=== PATIENT | male | born 1970 | race Caucasian/White ===

== ENCOUNTER 2023-11-14 14:14 | Emergency (ER) | payer OTHER, SELFPAY ==
[2023-11-14 14:16] VITALS: BP 118/75
--- NOTE | 2023-11-14 14:22 | ED.GENMED ---
History of Present Illness
General
Chief Complaint: Facial Problem
Time Seen by Provider: 11/14/23 14:21
Travel History
Have you had any contact with someone who has COVID-19?: No
Do you have any symptoms of coronavirus? Fever > 100 degrees, chills, cough, shortness of breath, sore throat, loss of taste or smell, muscle aches, or headache?: No
History of Present Illness
History of Present Illness:
HPI: Patient presents with right-sided facial droop which his noted last night. The patient denies any headache. He feels generally 'exhausted'. He takes several medications related to sleep. He says he has a history of prediabetes and uses
Ozempic. He has no extremity involvement of symptoms.
EXAM:
GENERAL: Well appearing in no distress
HEENT: Moist oral mucosa
CARDIOVASCULAR: No murmurs, normal heart rate and rhythm, No chest wall tenderness
PULMONARY: No respiratory distress, breath sounds are clear and equal
ABDOMEN: Soft with no peritoneal signs, no tenderness
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
PSYCHIATRIC: Appropriate mental status, normal insight and judgement
EXTREMITIES: Nontender, no edema, moves all extremities equally
SKIN: No rash, no lesions
ED COURSE:
2:30 PM: I initially evaluated patient
NUMBER AND COMPLEXITY OF PROBLEMS ADDRESSED AT THE ENCOUNTER
� Chronic conditions affecting care: The patient is a pre-diabetic on Ozempic
� Acute Exacerbation and/or Progression of Chronic Illness: Has history of anxiety/PTSD
� Differential Diagnosis includes: Redmond's palsy, hypo or hyperglycemia, CVA very unlikely based on physical examination
AMOUNT AND/OR COMPLEXITY OF DATA TO BE REVIEWED AND ANALYZED
� I performed an independent evaluation of and my interpretation is:
EKG: Sinus 81, left axis deviation, no acute ST abnormality, normal intervals
CT:
X-rays:
Laboratory Studies: Blood sugar somewhat high at 138
Other:
� Review of other/old records: Patient was here in 2019 with COVID and CBC at that time was normal
� Clinical information was obtained by an independent historian: None needed
� Prescriptions/Medications Considered but not given:
� Further testing considered but not performed: Considered neuroimaging however the patient's exam is clearly consistent with Redmond's palsy
RISK OF COMPLICATIONS AND/OR MORBIDITY OR MORTALITY OF PATIENT MANAGEMENT
� Social determinants of health affecting care:
� Discussion with other providers:
� Escalation of care including admission/observation vs risk of discharge considered: Based on physical examination, neurologic exam is consistent with Redmond's palsy. Will start Valtrex and steroids. I did inform the patient of
the potential side effects.
Past History
Past History
ED Past Medical History: Psychiatric and Other (narcolepsy)
Social History
Tobacco: Non-smoker
Alcohol: None
Drug: None
Personal:
Living: with family
Employment: Disabled
Phy Exam
Physical Exam
Physical Exam:
See HPI
Course
Orders/Labs/Results
Orders:
Orders
11/14/23 14:35
Bedside Glucose- Treatment ONCE
11/14/23 14:49
Electrocardiogram (*1) Urgent
Reason for Study: TIA/Stroke
EKG- Treatment ONCE
11/14/23 14:54
Prednisone [Deltasone] 50 mg PO NOW STA
Valacyclovir HCl [Valtrex] 1,000 mg PO NOW STA
Abnormal Lab Results
11/14/23
14:41
POC Glucose 138 H mg/dl
(70-99)
Vital Signs
Initial and Last Documented VS:
Initial Vital Signs
Temp Pulse Resp BP Pulse Ox
98.1 F 78 16 118/75 98
11/14/23 14:16 11/14/23 14:16 11/14/23 14:16 11/14/23 14:16 11/14/23 14:16
Last Documented Vital Signs
Temp Pulse Resp BP Pulse Ox
98.1 F 78 16 118/75 98
11/14/23 14:16 11/14/23 14:16 11/14/23 14:16 11/14/23 14:16 11/14/23 14:16
*Critical Care Note
Total Time (30-74mins, 75-104mins- exclusive of procedures): Not Applicable
ED Attending Note
-
Portions of this chart may have been created with voice recognition software.� Occasional wrong word or��sound alike� substitutions may have occurred due to the inherent limitations of voice recognition software.
Discharge Plan
Departure
Patient Disposition: Home (Routine Discharge)
Date of Disposition: 11/14/23
Time of Disposition: 14:59
Patient with high blood pressure during this ER visit?: Yes
Discharge Problem:
Redmond's palsy
Instructions: Redmond's Palsy (DC)
Prescriptions:
New
prednisone 50 mg tablet
50 mg PO DAILY Qty: 6 0RF
valacyclovir [Valtrex] 1 gram tablet
1,000 mg PO TID Qty: 21 0RF
No Action
albuterol sulfate 1 PUFF HFA aerosol inhaler
2 puff inhalation R [id number] PRN (Reason: shortness of breath) Qty: 1 0RF
Activity Restrictions/Additional Instructions:
Your physical exam is consistent with Redmond's palsy. Your blood sugar was 138 and your EKG was normal. I am sending a prescription for prednisone to your pharmacy for an additional 6 days as well as a course of Valtrex. Follow-up with your primary
care doctor. Try to keep your eye moist by using [id number] moisturizing eye ointment/drops and consider taping your eye shut at night. Return here if worse.
Interventions
Interventions:
*Neglect/Abuse Screening Last Done: 11/14/23 14:27
*ED COVID-19 Vaccine History Last Done: 11/14/23 14:16
ED- Neurological Assessment Last Done: 11/14/23 14:29
ED-Skin Assessment Last Done: 11/14/23 14:31
[2023-11-14 14:44] LABS: Glucose - Point of Care 138 mg/dl (70-99)
[2023-11-14] MEDS: DELTASONE 50 MG PO (15:15)
[2023-11-14] MEDS: VALTREX 1000 MG PO (15:15)
[2023-11-14 15:32] VITALS: BP 139/85
== END 2023-11-14 15:33 | disposition home or self-care (01) ==
LOC: EMR 14:14
PROVIDERS: EMERGENCY PHYSICIAN Emergency Medicine
DX: G51.0 Bell's palsy (principal); R03.0 Elevated blood-pressure reading, without diagnosis of hypertension
CPT/HCPCS: 99284; 82962; 93005